=== PATIENT | male | born 1990 | race Caucasian/White ===

== ENCOUNTER → 2024-09-19 12:14 | Outpatient (CLI) | payer OTHER, SELFPAY ==
--- NOTE | 2024-09-19 12:28 | DI.RAD.S_ITS ---
PROCEDURE: XR CHEST 2V INDICATIONS: HYPERPROLACTINEMIA TECHNIQUE: 2 views of the chest were acquired. COMPARISON: None. FINDINGS: Surgical changes and devices: None. Lungs and pleura: Lungs are clear. No pleural effusions or pneumothorax. Mediastinum: Mediastinal contours are normal. Heart size is normal. Bones and chest wall: No suspicious bony abnormalities. Soft tissues appear unremarkable. IMPRESSION: No acute cardiopulmonary abnormality is seen. Dictated by: Damian Penny M.D. on 09/19/2024 at 14:05 Approved by: Damian Penyn M.D. on 09/19/2024 at 14:05
== END ==
PROVIDERS: PCP Registered Nurse; Referring Provider Registered Nurse; Visit Provider Registered Nurse
DX: E22.1 Hyperprolactinemia (principal)
CPT/HCPCS: 71046